=== PATIENT | male | born 1945 | race Caucasian/White ===

== ENCOUNTER 2017-06-17 13:07 | Inpatient (IN) | payer MEDICARE, OTHER ==
[2017-06-17] MEDS ORDERED: Dextrose 50% Abboject 50 ML SYRINGE SLOW IVP PRN (15:15)
[2017-06-17] MEDS ORDERED: HumaLOG 300 UNITS/3 ML VIAL SC PRN (15:15)
[2017-06-17] MEDS ORDERED: Dextrose 5% in Water 1,000 ML IV PRN (15:15)
[2017-06-17] MEDS ORDERED: Non-Formulary Item 1 EACH (Vancomycin/0.9 % Sod Chloride [Vancomycin 1 G/100ml-0.9% Nacl] IV SCH (15:15)
[2017-06-17] MEDS: Vancomycin HCl 125 MG Capsule PO SCH ×2 (17:15→21:42)
[2017-06-17] MEDS: Loperamide HCl 2 MG CAP PO PRN (17:15)
[2017-06-17 17:33] VITALS: BMI 25.5
[2017-06-17] MEDS ORDERED: [UNRECOGNIZED DRUG - OTHER] IV PRN (18:43)
--- NOTE | 2017-06-17 18:55 | HP ---
DATE OF ADMISSION: 06/17/2017 CHIEF COMPLAINTS: 1. Deconditioning. 2. Chronic atrial fibrillation. 3. Severe peripheral vascular disease with nonhealing ulcers, refusing amputation. 4. Cirrhosis with portal hypertension. 5. Hypertension. 6. Dyslipidemia. 7. Diabetes mellitus. 8. End-stage renal disease, on hemodialysis. 9. Hypothyroidism. BRIEF HISTORY: This is a 71-year-old male with multiple medical problems, who was admitte d to [facility] on 06/01/2017 with weakness and low-grade fever. He has history of chronic osteomyelitis and severe peripheral vascular disease. He also has cirrhosis. He has re fused amputation. He was admitted to the hospital and started on empiric antibiotic therapy along w ith wound care. His laboratory values stabilized. He has been taken off his warfarin due to his ci rrhosis. He was apparently recommended hospice care, which he refused. He has been transferred her therapy to see how he does, but everyone feels that his prognosis is really poor due to his multip le comorbid conditions, osteomyelitis, cirrhosis, end-stage renal disease and his nutritional status . Currently, he is resting comfortably. He denies any complaints other than being hungry. He has been having a low-grade fever and he is on Levaquin and Flagyl p.o. and vancomycin with hemodialysis . He denies chest pain or shortness of breath. He denies any chronic cough or expectoration. PAST MEDICAL HISTORY: 1. Hypertension. 2. Dyslipidemia. 3. Cirrhosis with portal hypertension and ascites. 4. History of superior mesenteric vein thrombosis. 5. Severe peripheral vascular disease. 6. Diabetes mellitus type 2. 7. Chronic atrial fibrillation. 8. End-stage renal disease, on hemodialysis. 9. Hypothyroidism. 10. Chronic lymphocytic leukemia. 11. Chronic osteomyelitis. 12. Recent renal artery stent placement. 13. Clostridium difficile colitis. 14. Pulmonary hypertension. PAST SURGICAL HISTORY: 1. Bilateral eye surgery. 2. Tonsillectomy. 3. Dialysis access. 4. Right SFA stent. 5. Left renal artery stent. FAMILY HISTORY: Positive for hypertension. PSYCHOSOCIAL HISTORY: He has history of alcoholism. He does chew tobacco. No IV drug abuse. ALLERGIES: 1. ACTOS. 2. SULFA ANTIBIOTICS. 3. ZESTRIL. CURRENT MEDICATIONS: He has been admitted here with the following medications: Glyburide 5 mg canelo y, Floranex 2 tablets daily, vitamin C 500 mg daily, Neurontin 100 mg at nighttime, Levaquin 250 juan ly, Levoxyl 325 mcg daily, Imodium 2 mg q.6 hours p.r.n., Toprol-XL 12.5 mg b.i.d., Flagyl 250 mg t. i.d., midodrine 2.5 mg p.o. t.i.d., vancomycin with hemodialysis, Protonix 40 mg b.i.d., sildenafil 20 mg at bedtime, and vancomycin 125 mg q.i.d. REVIEW OF SYSTEMS: Cardiovascular: Denies any chest pain, shortness of breath, palpitations, parox ysmal nocturnal dyspnea, orthopnea, or pedal edema. Respiratory: Denies any chronic cough, expecto ration or pleuritic type chest pain. Gastrointestinal: He denies any vomiting, hematemesis, melena , or hematochezia. He does complain of occasional nausea. Genitourinary: He denies any frequency, urgency, dysuria or hematuria. Central Nervous System: Generalized weakness. PHYSICAL EXAMINATION: GENERAL: A 71-year-old male, resting comfortably in bed. His is in the room. He de nies any complaints. VITAL SIGNS: He is afebrile, heart rate 88, respirations 16, oxygen saturation is 98% and blood pre ssure is not in the chart yet. HEENT: Normocephalic, atraumatic. Pupils are equally reactive to light and accommodation. NECK: No JVD, thyromegaly, cervical adenopathy, throat exudates, or carotid bruits. CARDIOVASCULAR: S1 and S2+, irregularly irregular. RESPIRATORY: Normal vesicular breath sounds with decreased air entry at the bases. ABDOMEN: Soft, distended, nontender. Bowel sounds heard in all quadrants. No Khoury Art's or Cul cici's sign. He does have free fluid in the abdomen. EXTREMITIES: Without cyanosis or clubbing. Multiple wounds with dressing. Peripheral pulses are n ot palpable. CENTRAL NERVOUS SYSTEM: Generalized weakness. LABORATORY DATA: Laboratory values are pending. IMPRESSION: 1. Diabetes mellitus type 2. 2. Peripheral vascular disease with possible osteomyelitis. 3. Fever of unknown etiology. 4. Pulmonary hypertension. 5. Hypertension. 6. Dyslipidemia. 7. Hypothyroidism. 8. Cirrhosis with ascites. 9. History of atrial fibrillation. 10. Superior mesenteric artery thrombosis. 11. History of stent placement to the renal artery and to the lower extremity vessels and significa nt deconditioning. 12. End-stage renal disease, on hemodialysis. PLAN: 1. Continue current medications. 2. 1800 calorie heart healthy diet. 3. Accu-Cheks with sliding scale coverage. 4. Hemodialysis. 5. Wound care. 6. Antibiotics as prescribed. 7. Routine laboratory values. 8. Consult PT and OT. 9. Watch for any decompensation of his liver disease. 10. Monitor heart rate. 11. Poor prognosis. 12. I discussed with the patient and spouse in detail and all questions answered. 13. Stool for Clostridium difficile. 14. Contact isolation.
[2017-06-17] MEDS ORDERED: Midodrine HCl 5 MG TAB PO PRN (21:00)
[2017-06-17] MEDS: Gabapentin 100 MG CAP PO SCH (21:41)
[2017-06-17] MEDS: metroNIDAZOLE 500 MG TAB PO SCH (21:41)
[2017-06-17] MEDS: Sildenafil Citrate 20 MG TAB PO SCH (21:42)
[2017-06-18 04:36] LABS: Blood, Urine Moderate (Negative); Clarity Cloudy (Clear); Glucose, Urine (Dipstick) Negative (Negative); Leukocyte Moderate (Negative); Nitrite Negative (Negative); Protein, Urine (Dipstick) > or equal to 300 mg/dL (Neg-Trace); Specific Gravity, Urine 1.025 (1.005-1.030); Urobilinogen 0.2 mg/dL (0.2-1.0)
[2017-06-18 04:37] LABS: Bacteria/HPF 3+ HPF (None Seen); Bilirubin Negative (Negative); Icto Negative (Negative); RBC/HPF 21-50 HPF (0-3); Squamous Epithelial 0-3 HPF (0-3); WBC/HPF 21-50 HPF (0-3)
[2017-06-18 05:11] LABS: #Basophils 0.1 thou/uL (0.0-0.2); #Eosinphils 0.1 thou/uL (0.0-0.7); #Monocytes 0.6 thou/uL (0.11-0.59); #Neutrophils 2.3 thou/uL (1.40-6.50); %Basophils 1.4 % (0.0-1.0); %Lymphocytes 25.9 % (21.0-51.0); %Monocytes 14.5 % (0.0-10.0); %Neutrophils 56.2 % (42.0-75.0); Hemoglobin 8.8 g/dL (14.0-18.0); Mean Corpuscular Hemoglobin 29.2 pg (27.0-31.0); Mean Corpuscular Volume 94.3 fl (80.0-94.0); Platelet Count 175 thou/uL (130-400); RBC Distribution Width 17.6 % (11.5-14.5); Red Blood Cell (RBC) Count 3.02 mill/uL (4.70-6.10)
[2017-06-18 05:28] LABS: Anion Gap 12 mmol/L (10-20); BUN (Urea Nitrogen) 8 mg/dL (8.4-25.7); Calc. Creatinine Clearance 35 mL/min (70-130); Calcium 7.9 mg/dL (7.8-10.44); Carbon Dioxide 28 mmol/L (23-31); Chloride 97 mmol/L (98-107); Estimated GFR-MDRD 28; Glucose 87 mg/dL (80-115); Potassium 3.7 mmol/L (3.5-5.1); Sodium 133 mmol/L (136-145)
[2017-06-18] MEDS: Levothyroxine Sodium 150 MCG TAB PO SCH (06:13)
[2017-06-18] MEDS: Levothyroxine Sodium 25 MCG TAB PO SCH (06:14)
[2017-06-18] MEDS: Lactinex Tablet PO SCH (08:45)
[2017-06-18] MEDS: metroNIDAZOLE 500 MG TAB PO SCH ×3 (08:45→20:41)
[2017-06-18] MEDS: Vancomycin HCl 125 MG Capsule PO SCH ×4 (08:46→20:42)
[2017-06-18] MEDS: Multivitamin W/ Minerals 1 TAB PO SCH (08:47)
[2017-06-18] MEDS: Ascorbic Acid 500 mg Chewable Tablet PO SCH (08:47)
[2017-06-18] MEDS: glyBURIDE 5 MG TAB PO SCH (08:48)
[2017-06-18] MEDS: Loperamide HCl 2 MG CAP PO PRN (12:21)
--- NOTE | 2017-06-18 15:13 | PRG ---
DATE OF SERVICE: 06/18/2017 SUBJECTIVE: Mr. Castillo is doing the same. He has been moved closer to the nurse's station. He apparently is not eating well. Dietary consult has been placed. He denies any complaints. OBJECTIVE: VITAL SIGNS: He is afebrile, heart rate is 104, respiratory rate 16, oxygen saturation is 98% and b lood pressure 118/58. CARDIOVASCULAR: S1, S2 plus, irregularly irregular. RESPIRATORY: Normal vesicular breath sounds. ABDOMEN: Soft, nontender, bowel sounds heard in all quadrants. EXTREMITIES: Without cyanosis or clubbing. CENTRAL NERVOUS SYSTEM: Generalized weakness. LABORATORY VALUES: White count is 4.0, hemoglobin and hematocrit is 8.8 and 28.4. Sodium 133, pota ssium 3.7, BUN and creatinine is 8 and 2.29. Blood sugars are 92, 94, and 167. IMPRESSION: 1. Chronic atrial fibrillation with fluctuating ventricular response. 2. Severe peripheral vascular disease with nonhealing ulcers, refusing amputation. 3. Chronic osteomyelitis. 4. Cirrhosis with portal hypertension. 5. Hypertension. 6. Dyslipidemia. 7. Diabetes mellitus type 2. 8. End-stage renal disease, on hemodialysis. 9. Hypothyroidism. 10. Poor oral intake. PLAN: 1. Consult dietitian and may even need a 3-day calorie count. 2. Continue current medications. 3. Hemodialysis. 4. Nutritional support. 5. He has been taken off warfarin due to coagulopathy and cirrhosis. 6. Wound care. 7. Routine laboratory values. 8. Poor long-term prognosis. 9. Discussed with the patient in detail and all questions answered.
[2017-06-18] MEDS: Acetaminophen 500 MG TAB PO PRN ×2 (17:05→23:17)
[2017-06-18] MEDS: Gabapentin 100 MG CAP PO SCH (20:42)
[2017-06-18] MEDS: Sildenafil Citrate 20 MG TAB PO SCH (20:42)
[2017-06-19] MEDS: Levothyroxine Sodium 150 MCG TAB PO SCH (06:12)
[2017-06-19] MEDS: Levothyroxine Sodium 25 MCG TAB PO SCH (06:13)
[2017-06-19] MEDS: Lactinex Tablet PO SCH (08:57)
[2017-06-19] MEDS: metroNIDAZOLE 500 MG TAB PO SCH ×3 (09:00→20:21)
[2017-06-19] MEDS: Vancomycin HCl 125 MG Capsule PO SCH ×4 (09:00→20:21)
[2017-06-19] MEDS: Ascorbic Acid 500 mg Chewable Tablet PO SCH (09:01)
[2017-06-19] MEDS: Multivitamin W/ Minerals 1 TAB PO SCH (09:01)
[2017-06-19] MEDS: Acetaminophen 500 MG TAB PO PRN (09:02)
[2017-06-19] MEDS: glyBURIDE 5 MG TAB PO SCH (09:04)
--- NOTE | 2017-06-19 15:49 | PRG ---
DATE OF SERVICE: 06/19/2017 SUBJECTIVE: Mr. Castillo is doing well. He is complaining of back pain and he wants to get back o n his hydrocodone. He denies any other complaints. His spouse is in the room. Discussed with both of them about his code status since they brought his advanced wishes form and both of them stated t hat the patient does not want any aggressive treatment. He does not want any cardio-resuscitative m easures if his heart stops beating or he stops breathing. OBJECTIVE: VITAL SIGNS: He is afebrile, heart rate 97, respirations 20, blood pressure 135/63. CARDIOVASCULAR SYSTEM: S1, S2 plus. RESPIRATORY SYSTEM: Normal vesicular breath sounds. ABDOMEN: Soft, nontender, bowel sounds heard in all quadrants. EXTREMITIES: Without cyanosis, clubbing. Stasis dermatitis is present. He also has bilateral foot with dressing from ischemic ulcers. LABORATORY DATA: White count is 4.0. H\T\H is 8.8 and 28.4. Blood sugars are 147, 112, 73, and 20 2. IMPRESSION: 1. Chronic osteomyelitis. 2. Cirrhosis of the liver. 3. Severe peripheral vascular disease with nonhealing ulcers. 4. Chronic atrial fibrillation. 5. Hypertension. 6. Dyslipidemia. 7. Diabetes mellitus type 2. 8. End-stage renal disease on hemodialysis. 9. Hypothyroidism. 10. Chronic back pain. PLAN: 1. Start [place] 5/325 q.6 p.r.n. 2. DNR status. 3. Continue current medications. 4. Mild sliding scale. 5. Wound care. 6. Nutritional support. 7. Physical therapy. 8. Discussed with patient and spouse in detail and all questions answered.
[2017-06-19] MEDS: HYDROcodone/Acetaminophen 5/325 mg Tablet PO PRN (15:50)
[2017-06-19] MEDS: Gabapentin 100 MG CAP PO SCH (20:20)
[2017-06-19] MEDS: Sildenafil Citrate 20 MG TAB PO SCH (20:22)
[2017-06-20 05:12] LABS: #Eosinphils 0.1 thou/uL (0.0-0.7); #Lymphocytes 1.3 thou/uL (1.20-3.40); #Monocytes 0.6 thou/uL (0.11-0.59); #Neutrophils 2.4 thou/uL (1.40-6.50); %Basophils 1.1 % (0.0-1.0); %Eosinophils 2.9 % (0.0-10.0); %Lymphocytes 28.8 % (21.0-51.0); %Monocytes 13.9 % (0.0-10.0); %Neutrophils 53.4 % (42.0-75.0); Hemoglobin 9.2 g/dL (14.0-18.0); Mean Corpuscular HGB CONC 32.1 g/dL (32.0-36.0); Mean Corpuscular Hemoglobin 29.8 pg (27.0-31.0); Mean Corpuscular Volume 92.8 fl (80.0-94.0); Mean Platelet Volume 5.6 fL (7.4-10.4); Platelet Count 173 thou/uL (130-400); RBC Distribution Width 17.3 % (11.5-14.5); Red Blood Cell (RBC) Count 3.07 mill/uL (4.70-6.10); White Blood Cell (WBC) Count 4.5 thou/uL (4.8-10.8)
[2017-06-20 05:30] LABS: Anion Gap 12 mmol/L (10-20); BUN (Urea Nitrogen) 17 mg/dL (8.4-25.7); Calc. Creatinine Clearance 24 mL/min (70-130); Calcium 7.5 mg/dL (7.8-10.44); Carbon Dioxide 26 mmol/L (23-31); Chloride 97 mmol/L (98-107); Estimated GFR-MDRD 19; Glucose 91 mg/dL (80-115); Potassium 4.4 mmol/L (3.5-5.1); Sodium 131 mmol/L (136-145)
[2017-06-20] MEDS: Levothyroxine Sodium 150 MCG TAB PO SCH (06:04)
[2017-06-20] MEDS: Levothyroxine Sodium 25 MCG TAB PO SCH (06:04)
[2017-06-20] MEDS: Ascorbic Acid 500 mg Chewable Tablet PO SCH (09:33)
[2017-06-20] MEDS: Lactinex Tablet PO SCH (09:34)
[2017-06-20] MEDS: Multivitamin W/ Minerals 1 TAB PO SCH (09:34)
[2017-06-20] MEDS: metroNIDAZOLE 500 MG TAB PO SCH ×3 (09:34→21:57)
[2017-06-20] MEDS: Vancomycin HCl 125 MG Capsule PO SCH (09:34)
[2017-06-20] MEDS: glyBURIDE 5 MG TAB PO SCH (09:41)
[2017-06-20] MEDS: HYDROcodone/Acetaminophen 5/325 mg Tablet PO PRN ×2 (09:43→21:58)
[2017-06-20] MEDS ORDERED: Vancomycin HCl 25 MG/ML Oral PO SCH (12:00)
[2017-06-20] MEDS: Vancomycin HCl 25 MG/ML Oral PO SCH ×3 (12:50→21:56)
[2017-06-20] MEDS: Gabapentin 100 MG CAP PO SCH (21:56)
[2017-06-20] MEDS: Sildenafil Citrate 20 MG TAB PO SCH (22:05)
[2017-06-21] MEDS: Levothyroxine Sodium 25 MCG TAB PO SCH (06:17)
[2017-06-21] MEDS: Levothyroxine Sodium 150 MCG TAB PO SCH (06:17)
[2017-06-21] MEDS: Lactinex Tablet PO SCH (08:41)
[2017-06-21] MEDS: Loperamide HCl 2 MG CAP PO PRN (08:41)
[2017-06-21] MEDS: Multivitamin W/ Minerals 1 TAB PO SCH (08:41)
[2017-06-21] MEDS: metroNIDAZOLE 500 MG TAB PO SCH ×3 (08:41→20:11)
[2017-06-21] MEDS: glyBURIDE 5 MG TAB PO SCH (08:42)
[2017-06-21] MEDS: Ascorbic Acid 500 mg Chewable Tablet PO SCH (08:42)
[2017-06-21] MEDS: HYDROcodone/Acetaminophen 5/325 mg Tablet PO PRN ×2 (08:48→20:11)
[2017-06-21] MEDS: Vancomycin HCl 25 MG/ML Oral PO SCH ×4 (08:49→20:10)
[2017-06-21] MEDS: Gabapentin 100 MG CAP PO SCH (20:11)
[2017-06-21] MEDS: Sildenafil Citrate 20 MG TAB PO SCH (21:12)
[2017-06-21] MEDS ORDERED: Calcium Carbonate 500 MG ChewTAB PO PRN (21:24)
[2017-06-22] MEDS: Levothyroxine Sodium 25 MCG TAB PO SCH (05:22)
[2017-06-22] MEDS: Levothyroxine Sodium 150 MCG TAB PO SCH (05:22)
[2017-06-22] MEDS: Lactinex Tablet PO SCH (08:47)
[2017-06-22] MEDS: glyBURIDE 5 MG TAB PO SCH (08:47)
[2017-06-22] MEDS: Ascorbic Acid 500 mg Chewable Tablet PO SCH (08:47)
[2017-06-22] MEDS: Multivitamin W/ Minerals 1 TAB PO SCH (08:47)
[2017-06-22] MEDS: metroNIDAZOLE 500 MG TAB PO SCH ×3 (08:47→21:14)
[2017-06-22] MEDS: Vancomycin HCl 25 MG/ML Oral PO SCH ×4 (08:51→21:16)
[2017-06-22] MEDS: HYDROcodone/Acetaminophen 5/325 mg Tablet PO PRN ×2 (08:52→21:15)
[2017-06-22] MEDS: Sildenafil Citrate 20 MG TAB PO SCH (21:14)
[2017-06-22] MEDS: Gabapentin 100 MG CAP PO SCH (21:15)
[2017-06-23] MEDS: Vancomycin HCl 25 MG/ML Oral PO SCH ×2 (02:24→10:59)
[2017-06-23] MEDS: Loperamide HCl 2 MG CAP PO PRN (02:25)
[2017-06-23] MEDS: Levothyroxine Sodium 150 MCG TAB PO SCH (05:52)
[2017-06-23] MEDS: Levothyroxine Sodium 25 MCG TAB PO SCH (05:52)
[2017-06-23] MEDS: HYDROcodone/Acetaminophen 5/325 mg Tablet PO PRN ×3 (07:15→22:07)
[2017-06-23] MEDS: metroNIDAZOLE 500 MG TAB PO SCH ×3 (08:16→22:06)
[2017-06-23] MEDS: Ascorbic Acid 500 mg Chewable Tablet PO SCH (08:18)
[2017-06-23] MEDS: Lactinex Tablet PO SCH (08:18)
[2017-06-23] MEDS: glyBURIDE 5 MG TAB PO SCH (08:18)
[2017-06-23] MEDS: Acetaminophen 500 MG TAB PO PRN (08:18)
[2017-06-23] MEDS: Multivitamin W/ Minerals 1 TAB PO SCH (08:18)
[2017-06-23] MEDS: Vancomycin HCl 125 MG Capsule PO SCH ×3 (10:53→22:09)
[2017-06-23] MEDS ORDERED: Vancomycin HCl 125 MG Capsule PO SCH (11:00)
--- NOTE | 2017-06-23 21:43 | PRG ---
DATE OF SERVICE: 06/23/2017 HISTORY OF PRESENT ILLNESS: This is a 71-year-old white male with multiple medical problems transfe r from the [facility] with chronic osteomyelitis, severe peripheral vascular dis ease, cirrhosis, end-stage renal disease on dialysis, diabetes type 2, chronic atrial fibrillation, hyperlipidemia, hypothyroidism, chronic lymphocytic leukemia, Clostridium difficile and pulmonary hy pertension. Patient was recommended to go on hospice care and have an amputation, which he both refused. He was transferred here for continued care to see if we can somehow get him doing a little bit better. SUBJECTIVE: The patient is sleeping. The states he is doing little bit better and after discu ssion with Dr. Rowan, he seems to be doing slightly better. He continues to do a little bit better every day. He has no complaints. His has no complaints today. PHYSICAL EXAMINATION: VITAL SIGNS: Today reveal blood pressure is 105/55, pulse 98 to 101, respirations 18 to 20, O2 sat is 93%. T-max is 100.2. Patient's weight is 178 pounds, which is stable. GENERAL: This is a well-developed, well-nourished, very pleasant white male, very thin, in no appar ent distress at this time. He has been resting well this afternoon. HEENT: Reveals normocephalic, nontraumatic cranium. Pupils are equally round. Nose and throat are dry. NECK: Supple, without masses, nodes or bruits. No jugular venous distention is noted. LUNGS: Chest is clear, but distant breath sounds are noted. No rales, no rhonchi, no wheezes are h eard. HEART: Reveals irregularly irregular rate and rhythm characteristic for chronic atrial fib, which i s rate controlled. ABDOMEN: Soft, nontender, without organomegaly. Normal bowel sounds are noted. GENITOURINARY: Deferred. EXTREMITIES: Reveal stasis dermatitis and dressings both of his legs. LABORATORY FINDINGS: His microbiology shows that he is growing yeast out of his urine cultures, so he is on Florastor. He also has methicillin-resistant Staph aureus from his foot drainage and he is on vancomycin at the end of each dialysis. ASSESSMENT: 1. Chronic osteomyelitis, presently on IV vancomycin. 2. Severe peripheral vascular disease with ulcerations. 3. Chronic atrial fibrillation. 4. Hypertension. 5. Hyperlipidemia. 6. Cirrhosis of the liver. 7. Diabetes type 2, end-stage renal disease on hemodialysis on Monday, , and Monday. 8. Hypothyroidism. 9. Chronic back pain. 10. Generalized weakness. PLAN: 1. Patient is a DNR. 2. Continue present medications. 3. Continue mild sliding scale diabetes. 4. Continue wound care. 5. Continue to encourage the patient to eat a little bit better for his nutritional support. 6. Continue physical therapy. 7. I did discuss the patient's care with his and the patient in their agreement and all questi ons were answered.
[2017-06-23] MEDS: Sildenafil Citrate 20 MG TAB PO SCH (22:06)
[2017-06-23] MEDS: Gabapentin 100 MG CAP PO SCH (22:08)
[2017-06-24] MEDS: Vancomycin HCl 125 MG Capsule PO SCH ×4 (01:24→22:09)
[2017-06-24] MEDS: Levothyroxine Sodium 25 MCG TAB PO SCH (06:29)
[2017-06-24] MEDS: HYDROcodone/Acetaminophen 5/325 mg Tablet PO PRN ×2 (06:29→18:03)
[2017-06-24] MEDS: Levothyroxine Sodium 150 MCG TAB PO SCH (06:29)
[2017-06-24] MEDS: metroNIDAZOLE 500 MG TAB PO SCH ×4 (09:47→22:08)
[2017-06-24] MEDS: Lactinex Tablet PO SCH (09:47)
[2017-06-24] MEDS: Ascorbic Acid 500 mg Chewable Tablet PO SCH (09:47)
[2017-06-24] MEDS: glyBURIDE 5 MG TAB PO SCH (09:47)
[2017-06-24] MEDS: Multivitamin W/ Minerals 1 TAB PO SCH (09:48)
[2017-06-24] MEDS: Gabapentin 100 MG CAP PO SCH (22:08)
[2017-06-24] MEDS: Sildenafil Citrate 20 MG TAB PO SCH (22:10)
[2017-06-25] MEDS: Vancomycin HCl 125 MG Capsule PO SCH ×4 (02:10→21:55)
[2017-06-25] MEDS: Levothyroxine Sodium 25 MCG TAB PO SCH (05:50)
[2017-06-25] MEDS: Levothyroxine Sodium 150 MCG TAB PO SCH (05:50)
[2017-06-25] MEDS: HYDROcodone/Acetaminophen 5/325 mg Tablet PO PRN ×2 (05:50→14:25)
--- NOTE | 2017-06-25 06:52 | PRG ---
DATE OF SERVICE: 06/24/2017 HISTORY OF PRESENT ILLNESS: Mr. Castillo is a very pleasant 71-year-old white male that was admitt ed to Dr. Rowan with a history of chronic osteomyelitis, severe peripheral vascular disease and cirr hosis. He has refused amputation. He also has end-stage renal disease with dialysis and he has mos t recently positive C. diff. Patient has only one complaint today that he has continued to have diarrhea. He is on his vancomyci n and Flagyl, but he does not understand the concept of Clostridium difficile diarrhea. He is upset that he went to dialysis and had diarrhea before. He could have his dialysis. PHYSICAL EXAMINATION: VITAL SIGNS: Reveal blood pressure 96/44, pulse 91-104, respirations 18-20, O2 sat not available, T -max 99.4. GENERAL: This is a well-developed, well-nourished, white male in no apparent distress at this time. HEENT: Reveals normocephalic, nontraumatic cranium. Pupils are equally round and reactive. Extrao cular movements intact. Nose and throat are slightly dry. NECK: Supple, without masses, nodes or bruits. CHEST: Clear, but breath sounds are distant. No rales, rhonchi or wheezes are heard. HEART: Reveals an irregularly irregular rate and rhythm. Rate controlled. ABDOMEN: Obese, nontender, without organomegaly, normal bowel sounds are noted, maybe slightly hype ractive. GENIURINARY: Deferred. EXTREMITIES: Reveal stasis dermatitis dressing on both legs. IMPRESSION: 1. Chronic osteomyelitis, presently on IV vancomycin. 2. Severe peripheral vascular disease and ulcerations. 3. Chronic atrial fibrillation. 4. Hypertension. 5. Hyperlipidemia. 6. Cirrhosis of the liver. 7. Diabetes type 2. 8. End-stage renal disease on hemodialysis Monday, , and Monday. 9. Hypothyroidism. 10. Chronic back pain and generalized weakness. PLAN: 1. The patient is DNR. 2. Continue present medications. 3. Continue C. diff treatment with Flagyl. 4. Continue wound care. 5. Continue physical therapy. 6. Continue vancomycin 125 mg p.o. q.6 hours. 7. Vancomycin given at dialysis. 8. Flagyl 250 mg p.o. t.i.d.
[2017-06-25] MEDS: Multivitamin W/ Minerals 1 TAB PO SCH (09:13)
[2017-06-25] MEDS: Ascorbic Acid 500 mg Chewable Tablet PO SCH (09:13)
[2017-06-25] MEDS: metroNIDAZOLE 500 MG TAB PO SCH ×3 (09:14→21:54)
[2017-06-25] MEDS: Lactinex Tablet PO SCH (09:14)
[2017-06-25] MEDS: glyBURIDE 5 MG TAB PO SCH (09:15)
--- NOTE | 2017-06-25 09:38 | PRG ---
DATE OF SERVICE: 06/25/2017 HISTORY OF PRESENT ILLNESS: Mr. Castillo is a 71-year-old white male that has multiple medical pro blems. He is followed by Dr. Menchaca. He basically has chronic osteomyelitis, severe periphe ral vascular disease with cirrhosis. He also has significant venous stasis and has refused amputati on of his leg with his osteo. He has end-stage renal disease, continues on dialysis. Most recently , he was reported to have a C. diff, although I cannot find that in hospital notes. He is being julio ated for that at this time. The patient is awake and states he is happy because he has had decreasing bowel movements. He state s he does have diarrhea, especially when he goes to dialysis. He has no complaints today. OBJECTIVE: VITAL SIGNS: Reveal blood pressure slightly low at 94/44, pulse 91-104, respirations 18-20, T-max 9 9.4. GENERAL: This is a well-developed, well-nourished, white male without complaints today. HEENT: Reveals normocephalic, nontraumatic cranium. Pupils equal, round, and reactive. Extraocula r movements intact. Nose and throat are slightly dry. NECK: Supple, without mass, nodes or bruits. CHEST: Clear to auscultation. Breath sounds are noted be distant. No rales, no rhonchi, no wheeze s are heard. HEART: Reveals irregularly irregular rate and rhythm, which is rate controlled. ABDOMEN: Obese and protuberant. Nontender, without organomegaly, normal bowel sounds are noted in all 4 quadrants. GENITOURINARY: Deferred. EXTREMITIES: Reveal stasis dermatitis with dressings intact on both legs. IMPRESSION: 1. Chronic osteomyelitis, presently on IV vancomycin. 2. Severe peripheral vascular disease with ulcerations. 3. Chronic atrial fibrillation. 4. Hypertension. 5. Hyperlipidemia. 6. Cirrhosis of the liver. 7. Diabetes type 2, stable. 8. End-stage renal disease on hemodialysis, Monday, , and Monday. 9. Hypothyroidism. 10. Chronic back pain. 11. Generalized weakness. PLAN: 1. The patient is noted to be a DNR. 2. Continue present medications. 3. Continue treatment of Clostridium difficile with Flagyl and vancomycin. 4. Continue wound care. 5. Continue PT. 6. Continue present course. 7. Dr. Menchaca will be back health information internship [facility] after 9:00.
[2017-06-25] MEDS: Gabapentin 100 MG CAP PO SCH (21:55)
[2017-06-25] MEDS: Sildenafil Citrate 20 MG TAB PO SCH (21:58)
[2017-06-26] MEDS: Vancomycin HCl 125 MG Capsule PO SCH ×2 (02:41→08:46)
[2017-06-26] MEDS: HYDROcodone/Acetaminophen 5/325 mg Tablet PO PRN ×2 (02:41→21:42)
[2017-06-26] MEDS: Levothyroxine Sodium 150 MCG TAB PO SCH (05:59)
[2017-06-26] MEDS: Levothyroxine Sodium 25 MCG TAB PO SCH (05:59)
[2017-06-26] MEDS: metroNIDAZOLE 500 MG TAB PO SCH ×3 (08:45→21:41)
[2017-06-26] MEDS: glyBURIDE 5 MG TAB PO SCH (08:46)
[2017-06-26] MEDS: Multivitamin W/ Minerals 1 TAB PO SCH (08:46)
[2017-06-26] MEDS: Lactinex Tablet PO SCH (08:46)
[2017-06-26] MEDS: Ascorbic Acid 500 mg Chewable Tablet PO SCH (08:47)
--- NOTE | 2017-06-26 14:01 | PRG ---
DATE OF SERVICE: 06/26/2017 SUBJECTIVE: Mr. Castillo is doing well. Denies any complaints, resting comfortably. His is in the room. He states that his appetite is not very good, but he is trying to eat. He has occasio nal diarrhea, but no fever or chills. I advised him that his stool for C. diff is negative and I am going to stop his oral vancomycin, but he will still need to be on contact isolation due to MRSA be ing in his wounds. He apparently is participating with therapy with encouragement. He remains a DN R. He is tolerating his hemodialysis. OBJECTIVE: VITAL SIGNS: He is afebrile, heart rate is 102, respirations 20, oxygen saturation 94%, blood press ure 109/57. CARDIOVASCULAR: S1, S2 plus. RESPIRATORY: Normal vesicular breath sounds. ABDOMEN: Soft, nontender, bowel sounds heard in all quadrants. EXTREMITIES: Without cyanosis or clubbing. IMPRESSION: 1. Chronic osteomyelitis. 2. Vascular also is in his foot. 3. End-stage renal disease on hemodialysis. 4. Diabetes mellitus type 2. 5. Methicillin-resistant Staphylococcus aureus in his wounds in his feet which is being managed by physical therapy. 6. Deconditioning. 7. Peripheral vascular disease 8. Dyslipidemia. 9. Hypothyroidism. PLAN: 1. Continue current medications. 2. 1800 calorie heart healthy ADA diet. 3. Deep venous thrombosis prophylaxis. 4. Decubitus precautions. 5. Stress ulcer prophylaxis. 6. Wound care. 7. Physical therapy. 8. Continue Flagyl. He is off his Levaquin. He is getting vancomycin with hemodialysis. 9. Discussed with the family in detail, all questions answered.
[2017-06-26] MEDS: Gabapentin 100 MG CAP PO SCH (21:42)
[2017-06-26] MEDS: Sildenafil Citrate 20 MG TAB PO SCH (21:43)
[2017-06-27] MEDS: Levothyroxine Sodium 150 MCG TAB PO SCH (05:32)
[2017-06-27 05:33] LABS: #Basophils 0.1 thou/uL (0.0-0.2); #Eosinphils 0.1 thou/uL (0.0-0.7); #Lymphocytes 1.3 thou/uL (1.20-3.40); #Monocytes 0.9 thou/uL (0.11-0.59); #Neutrophils 5.6 thou/uL (1.40-6.50); %Basophils 1.1 % (0.0-1.0); %Eosinophils 0.7 % (0.0-10.0); %Monocytes 11.1 % (0.0-10.0); Hemoglobin 9.1 g/dL (14.0-18.0); Mean Corpuscular HGB CONC 32.3 g/dL (32.0-36.0); Mean Corpuscular Hemoglobin 30.2 pg (27.0-31.0); Mean Corpuscular Volume 93.4 fl (80.0-94.0); Platelet Count 141 thou/uL (130-400); RBC Distribution Width 16.5 % (11.5-14.5); Red Blood Cell (RBC) Count 3.01 mill/uL (4.70-6.10); White Blood Cell (WBC) Count 7.9 thou/uL (4.8-10.8)
[2017-06-27] MEDS: Levothyroxine Sodium 25 MCG TAB PO SCH (05:33)
[2017-06-27 05:47] LABS: Anion Gap 11 mmol/L (10-20); BUN (Urea Nitrogen) 18 mg/dL (8.4-25.7); Calc. Creatinine Clearance 29 mL/min (70-130); Calcium 7.1 mg/dL (7.8-10.44); Carbon Dioxide 30 mmol/L (23-31); Chloride 94 mmol/L (98-107); Estimated GFR-MDRD 23; Glucose 105 mg/dL (80-115); Potassium 4.1 mmol/L (3.5-5.1); Sodium 131 mmol/L (136-145)
[2017-06-27 07:37] VITALS: BP 120/80; TEMP 100.5
[2017-06-27] MEDS: Ascorbic Acid 500 mg Chewable Tablet PO SCH (09:25)
[2017-06-27] MEDS: Lactinex Tablet PO SCH (09:25)
[2017-06-27] MEDS: metroNIDAZOLE 500 MG TAB PO SCH ×2 (09:25→15:00)
[2017-06-27] MEDS: Multivitamin W/ Minerals 1 TAB PO SCH (09:26)
[2017-06-27] MEDS: glyBURIDE 5 MG TAB PO SCH (09:26)
[2017-06-27] MEDS: HYDROcodone/Acetaminophen 5/325 mg Tablet PO PRN (09:33)
== END 2017-06-27 18:00 | disposition short-term general hospital (02) | DRG 637 ==
LOC: NAV ACUTE 13:07
PROVIDERS: ADMIT Internal Medicine; ATTEND Internal Medicine
DX: E11.69 Type 2 diabetes mellitus with other specified complication (principal); K55.069 Acute infarction of intestine, part and extent unspecified; I12.0 Hypertensive chronic kidney disease with stage 5 chronic kidney disease or end stage renal disease; N18.6 End stage renal disease; C91.10 Chronic lymphocytic leukemia of B-cell type not having achieved remission; M86.60 Other chronic osteomyelitis, unspecified site; B95.62 Methicillin resistant Staphylococcus aureus infection as the cause of diseases classified elsewhere; A04.7 Enterocolitis due to Clostridium difficile; K76.6 Portal hypertension; I27.2 Other secondary pulmonary hypertension; I48.2 Chronic atrial fibrillation; I73.9 Peripheral vascular disease, unspecified; E78.5 Hyperlipidemia, unspecified; E11.22 Type 2 diabetes mellitus with diabetic chronic kidney disease; Z99.2 Dependence on renal dialysis; E03.9 Hypothyroidism, unspecified; F10.21 Alcohol dependence, in remission; F17.220 Nicotine dependence, chewing tobacco, uncomplicated; Z88.2 Allergy status to sulfonamides; Z88.8 Allergy status to other drugs, medicaments and biological substances; E11.51 Type 2 diabetes mellitus with diabetic peripheral angiopathy without gangrene; R50.9 Fever, unspecified; K70.31 Alcoholic cirrhosis of liver with ascites; Z66 Do not resuscitate; I87.8 Other specified disorders of veins
CPT/HCPCS: 36415; 36416; 80048; 81001; 85025; 87070; 87077; 87086; 87186; 87205; 87324; 87449; 97602; G8978-GP-CL; G8979-GP-CJ; G8990-GP-CJ; G8991-GP-CI